=== PATIENT | male | born 1965 | race Hispanic/Latino ===

== ENCOUNTER 2025-03-16 18:23 | Emergency (ER) | payer SELFPAY ==
[2025-03-16] VITALS (9 sets, daily range): BP systolic 157–170; BP diastolic 76–81; PULSE 66–85; RESP 14–16; O2SAT 94–99; BMI 23.7
--- NOTE | 2025-03-16 18:28 | DI.RAD.S_ITS ---
PROCEDURE: XR ANKLE LT MIN 3V INDICATIONS: open fx TECHNIQUE: 2 views of the ankle were acquired. COMPARISON: [facility], CR, XR KNEE LT 3V, 03/16/2025, 18:24. FINDINGS: Bones: Significantly comminuted displaced distal tibia and fibular diaphyseal fractures. Fracture lucencies extend through the metaphysis on the tibia and into the tibiotalar joint space. Fractures present along the superior aspect of the medial malleolus. There is approximately 1.2 cm overlap of proximal distal fragments the fibula and 6.4 cm the tibia. Tibiotalar joint space is relatively well maintained without gross dislocation. Soft tissues: Prominent ankle effusion. Achilles tendon appears normal. IMPRESSION: Extensive distal tibia and fibular fractures with intra-articular extension as described above. Given appearance disruption of the syndesmosis is suspected. Dictated by: Montserrat Mitchell M.D. on 03/16/2025 at 19:49 Approved by: Montserrat Mitchell M.D. on 03/16/2025 at 19:51
--- NOTE | 2025-03-16 18:28 | DI.RAD.S_ITS ---
PROCEDURE: XR KNEE LT 3V INDICATIONS: open tib fib fx TECHNIQUE: 2 views of the knee were acquired. COMPARISON: [facility], CR, XR ANKLE LT MIN 3V, 03/16/2025, 18:24. FINDINGS: Bones: No fractures or dislocations. No suspicious bony lesions. Soft tissues: No joint effusion. No suspicious soft tissue calcifications. IMPRESSION: No visualized acute fracture or dislocation. However, if clinical concern and/or pain persist, short interval imaging followup in 7-10 days is recommended, as occult injury cannot be definitively excluded. Dictated by: Montserrat Mitchell M.D. on 03/16/2025 at 19:49 Approved by: Montserrat Mitchell M.D. on 03/16/2025 at 19:49
--- NOTE | 2025-03-16 18:33 | ED.LOWEXIN ---
HPI - Extremity Injury (Lower) General Chief Complaint: Extremity Injury, Lower Stated Complaint: Fall,open tib/fib fracture Time Seen by Provider: 03/16/25 18:28 History of Present Illness HPI Narrative: Patient is a 59-year-old male without any significant past medical history comes into the ED from home for evaluation of left open leg fracture, according to patient an hour ago he fell off of a ladder a proximally 4-5 feet high, he states that his foot got stuck and hung upside down for several minutes, he states that he did end up falling to the floor. Patient was brought in by medics, at time of evaluation patient in a splint to the left lower extremity, he denies any blood thinners denies any other injuries traumas at this time. Related Data Previous Rx's ?Medication ?Instructions ?Recorded ciprofloxacin HCl 500 mg tablet 500 mg PO BID 7 days #0 tabs 05/27/16 (Cipro) Allergies Allergy/AdvReac Type Severity Reaction Status Date / Time No Known Drug Allergies Allergy Verified 03/16/25 18:32 Review of Systems Review of Systems Narrative: General: Denies fever, chills, weight loss HEENT: Denies headache, eye drainage, eye irritation, head trauma, sore throat, voice change Cardiovascular: Denies any chest pain, palpitations, tachycardia Respiratory: Denies any shortness of breath, cough, wheeze, stridor GI/: Denies any abdominal pain, nausea, vomiting, diarrhea, bright red blood per rectum, melanotic stools, urinary frequency, urinary retention, dysuria, hematuria MSK: Positive left lower extremity fracture Skin: Denies any rashes, lesions, discoloration Neuro: Denies any headache, lightheadedness, dizziness, fainting, weakness Psych: Denies SI/HI Patient History Social History Smoking Status: Current every day smoker Exam Narrative Exam Narrative: General: Cooperative, well-developed, not in acute distress HEENT: Normocephalic, atraumatic, PERRLA, normal sclera, eyelids normal Neck: Active full range of motion, atraumatic Chest: Normal to inspection, negative crepitus, no overlying erythema ecchymosis Respiratory: Normal respiratory effort, not in acute respiratory distress, clear to auscultation bilaterally negative cough, wheeze, tachypnea, rhonchi, rales Cardiology: Regular rate rhythm negative gallop, murmur, rubs GI/: No tenderness to palpation, soft, non rigid, normal to inspection, exam deferred MSK: Patient with open fracture noted to the left lower extremity, neurovascularly intact, there is a 2 cm laceration to the lower left extremity Skin: No rashes or lesions noted Neuro: Alert awake oriented x3, moves all 4 extremities spontaneously, cranial nerves intact, able to answer all questions appropriately follows commands appropriately Psych: Cooperative, negative suicidal or homicidal ideations Initial Vital Signs Initial Vital Signs: Vital Signs Pulse Rate 77 03/16/25 18:32 Respiratory Rate 16 03/16/25 18:32 Blood Pressure 169/81 H 03/16/25 18:32 Pulse Oximetry 99 03/16/25 18:32 Oxygen Delivery Method Room Air 03/16/25 18:32 Course Orders Ordered: ED Orders 03/16/25 18:28 XR ankle LT 2V Stat XR knee LT 1to2V Stat 03/16/25 18:51 CBC Auto Diff [Complete Blood Count AUTO DIFF] Stat CMP [Comprehensive Metabolic Panel] Stat PT [Prothrombin Time INR] Stat PTT Partial Thromboplastin Yuri Stat 03/16/25 19:36 Type and Screen Stat Hydromorphone HCl (Hydromorphone Hcl 0.5 Mg/0.5 Ml Syringe) 0.5 mg IV NOW ONE Stop: 03/16/25 20:20 Discontinued Medications Diphtheria/Tetanus/Acell Pertussis (Tet,Diph,Pertuss(Acell),Vac/Pf 0.5 Ml Syringe) 0.5 ml IM .ONCE ONE Stop: 03/16/25 18:51 Fentanyl (Fentanyl 100 Mcg/2 Ml Inj) 100 mcg IM NOW ONE Stop: 03/16/25 18:29 Last Admin: 03/16/25 18:54 Dose: Not Given Documented By: LM Fentanyl (Fentanyl 100 Mcg/2 Ml Inj) 100 mcg IV NOW ONE Stop: 03/16/25 18:45 Last Admin: 03/16/25 18:45 Dose: 100 mcg Documented By: LM Cefazolin Sodium/Dextrose (Ancef) 100 mls @ 200 mls/hr IV NOW ONE Stop: 03/16/25 19:14 Last Infusion: 03/16/25 19:35 Dose: Infused Documented By: Admin: 03/16/25 18:56 Dose: 200 mls/hr Documented By: LM Vital Signs Vital signs: Vital Signs - 8 hr 03/16/25 18:32 Pulse Rate 77 Respiratory Rate 16 Blood Pressure 169/81 H Pulse Oximetry 99 Oxygen Delivery Method Room Air MDM - Extremity Injury (Lower) Differential Diagnosis Differential diagnosis: Likely ankle sprain and strain and other (Open fracture, laceration,) Lab Data 03/16/25 18:51 03/16/25 18:51 Labs: Lab Results 03/16/25 03/16/25 Range/Units 18:51 19:36 WBC 10.8 (4.5-11.0) X10^3/uL RBC 4.02 L (4.5-5.9) X10^6/uL Hgb 14.1 (13.5-17.5) g/dL Hct 39.6 L (41-53) % MCV 98.5 (80-100) fL MCH 35.0 H (26-34) PG MCHC 35.6 (30-36) % RDW 12.5 (11.6-14.8) % Plt Count 219 (150-400) X10^3/uL Neut % (Auto) 79.4 H (50-75) % Lymph % (Auto) 13.0 L (25-40) % Irwin % (Auto) 5.6 (3-14) % Eos % (Auto) 1.6 L (2-4) % Baso % (Auto) 0.4 (0-2) % Neut # (Auto) 8600 H (6106-7934) /uL Lymph # (Auto) 1400 (1560-5673) /uL Irwin # (Auto) 600 (0-900) /uL Eos # (Auto) 200 (0-450) /uL Baso # (Auto) 0 (0-100) /uL PT 11.5 (9.4-12.5) SECONDS INR 1.0 (0.9-1.3) APTT 25 L (25.1-36.5) SECONDS Sodium 137 (137-145) mmol/L Potassium 4.3 (3.4-5.1) mmol/L Chloride 107 (98-107) mmol/L Carbon Dioxide 23 (22-32) mmol/L BUN 22 H (9-20) mg/dL Creatinine 0.93 (0.66-1.25) mg/dL Estimated GFR > 60 (>60) mL/min BUN/Creatinine Ratio 23.7 H (6-22) Glucose 106 H (70-99) mg/dL Calcium 9.0 (8.4-10.2) mg/dL Total Bilirubin 0.8 (0.2-1.3) mg/dL AST 41 (17-59) IU/L ALT 33 (<50) IU/L Alkaline Phosphatase 65 (38-126) U/L Total Protein 7.3 (6.3-8.2) g/dL Albumin 4.5 (3.5-5.0) g/dL Globulin 2.8 (1.7-4.1) g/dL Albumin/Globulin Ratio 1.6 (1.0-2.8) Blood Type A Positive Antibody Screen Negative Imaging Data Extremity x-ray #1: Radiologist's Impression: [address] [address] XRay Report Signed Patient: Antoine Salmon V MR#: [id number] : 1965 Acct:[id number] Age/Sex: 59 / M Date of Service: 03/16/25 Loc: ED Accession Number: [id number] Procedure: XR knee LT 1to2V Ordering Provider: Victor M Slater D.O. PROCEDURE: XR KNEE LT 3V INDICATIONS: open tib fib fx TECHNIQUE: 2 views of the knee were acquired. COMPARISON: [facility], , XR ANKLE LT MIN 3V, 03/16/2025, 18:24. FINDINGS: Bones: No fractures or dislocations. No suspicious bony lesions. Soft tissues: No joint effusion. No suspicious soft tissue calcifications. IMPRESSION: No visualized acute fracture or dislocation. However, if clinical concern and/or pain persist, short interval imaging followup in 7-10 days is recommended, as occult injury cannot be definitively excluded. Extremity x-ray #2: Radiologist's Impression: [address] [address] XRay Report Signed Patient: Antoine Salmon V MR#: [id number] : 1965 Acct:[id number] Age/Sex: 59 / M Date of Service: 03/16/25 Loc: ED Accession Number: [id number] Procedure: XR ankle LT 2V Ordering Provider: Victor M Slater D.O. PROCEDURE: XR ANKLE LT MIN 3V INDICATIONS: open fx TECHNIQUE: 2 views of the ankle were acquired. COMPARISON: [facility], CR, XR KNEE LT 3V, 03/16/2025, 18:24. FINDINGS: Bones: Significantly comminuted displaced distal tibia and fibular diaphyseal fractures. Fracture lucencies extend through the metaphysis on the tibia and into the tibiotalar joint space. Fractures present along the superior aspect of the medial malleolus. There is approximately 1.2 cm overlap of proximal distal fragments the fibula and 6.4 cm the tibia. Tibiotalar joint space is relatively well maintained without gross dislocation. Soft tissues: Prominent ankle effusion. Achilles tendon appears normal. IMPRESSION: Extensive distal tibia and fibular fractures with intra-articular extension as described above. Given appearance disruption of the syndesmosis is suspected. MDM Narrative Medical decision making narrative: Patient is a 59-year-old male without any significant past medical history presenting from home for evaluation of open fracture, patient states that 1 hour prior to arrival he fell off of a 5 ft ladder hung by his left leg and fell down. He denies any other injuries at this time, not on any blood thinners, on exam patient with a gross deformity to the left lower extremity with laceration to the anterior aspect of the left lower extremity, bleeding controlled, neurovascularly intact otherwise patient able to move ankle and toes, good palpable dorsalis pedis and posterior tibialis. Did place patient in splint thoroughly irrigated the wound and placed a compressive dressing to control bleeding. Did give patient 100 mcg fentanyl initially, fluids and 2 g Ancef. Patient did state last p.o. was at 10:00 a.m. ate some eggs. 1924: Discussed case with orthopedic surgeon Dr. Hays, reviewed the x-rays and states that it is a pilon fracture and that this patient will need to go to higher level of care is suggesting [facility], call placed out for this. Does agree to place patient in splint prior to transfer, we will place patient in splint here, did inform patient of need for transfer understands and agrees with this plan. 1943: Discussed case with emergency medicine doctor Dr. Matthews, accepts the admission at ED [place] [facility], slight patient there no further recommendations 2030: Transport at bedside, patient re-evaluated, safe for transport to outside hospital Critical Care Time Critical Care Time Critical Care Time: Yes Total Critical Care Time: 35 Attestation: Authorized and Performed by: Victor M Slater DO Total critical care time: Approximately [35] minutes Due to a high probability of clinically significant, life threatening deterioration, the patient required my highest level of preparedness to intervene emergently and I personally spent this critical care time directly and personally managing the patient. This critical care time included obtaining a history; examining the patient; pulse oximetry; ordering and review of studies; arranging urgent treatment with development of a management plan; evaluation of patient's response to treatment; frequent reassessment; and, discussions with other providers. This critical care time was performed to assess and manage the high probability of imminent, life-threatening deterioration that could result in multi-organ failure. It was exclusive of separately billable procedures and treating other patients and teaching time. Please see MDM section and the rest of the note for further information on patient assessment and treatment. Discharge Plan Departure Patient Disposition: [facility] Clinical Impression: Pilon fracture Qualifiers: Encounter type: initial encounter Fracture type: open Open fracture type: open type I or II Fracture alignment: displaced Laterality: left Qualified Code(s): S82.872B - Displaced pilon fracture of left tibia, initial encounter for open fracture type I or II Prescriptions: No Action ciprofloxacin HCl [Cipro] 500 MG tablet 500 mg PO BID 7 Days Qty: 0 0RF
[2025-03-16] MEDS: fentaNYL 100 MCG/2 ML INJ IV (18:45)
[2025-03-16] MEDS: CEFAZOLIN 2 GM/100 ML PREMIX 100 ML IV (18:56)
[2025-03-16 18:59] LABS: Add Manual Diff / Slide Review NO; Hematocrit 39.6 % (41-53); Hemoglobin 14.1 g/dL (13.5-17.5); Lymphocytes Absolute Auto 1400 /uL (1100-4500); Mean Corpuscular HGB Conc 35.6 % (30-36); Mean Corpuscular Hemoglobin 35.0 PG (26-34); Mean Corpuscular Volume 98.5 fL (80-100); Platelet Count 219 X10^3/uL (150-400)
[2025-03-16 19:06] LABS: INR 1.0 (0.9-1.3); Prothrombin Time 11.5 SECONDS (9.4-12.5)
[2025-03-16 19:09] LABS: PTT Partial Thromboplastin Tim 25 SECONDS (25.1-36.5)
[2025-03-16 19:14] LABS: Alanine Aminotransferase 33 IU/L (<50); Albumin 4.5 g/dL (3.5-5.0); Albumin Globulin Ratio 1.6 (1.0-2.8); Alkaline Phosphatase 65 U/L (38-126); Blood Urea Nitrogen 22 mg/dL (9-20); Calcium 9.0 mg/dL (8.4-10.2); Carbon Dioxide 23 mmol/L (22-32); Chloride 107 mmol/L (98-107); Estimated Glomerular Filt Rate > 60 mL/min (>60); Globulin 2.8 g/dL (1.7-4.1); Glucose 106 mg/dL (70-99); Potassium 4.3 mmol/L (3.4-5.1); Sodium 137 mmol/L (137-145); Total Protein 7.3 g/dL (6.3-8.2)
[2025-03-16 19:19] LABS: HEMOLYSIS 88 (0-50)
--- NOTE | 2025-03-16 19:24 | PC.NURSE ---
Wound to left lower leg washed out with 1L NS, non-adherent placed with 4x4 gauze placed on top, wrapped with stretch gauze, ASYA wrap placed for compression per providers instruction. Pt tolerated well. Pt able to move toes and has good sensation after.
--- NOTE | 2025-03-16 19:59 | PC.NURSE ---
While talking with pt, pt stopped talking mid sentence and stated I lost feeling in my foot. My big toe, it's like it's sleeping. My toe is asleep. Pulse in left foot faint to top of foot, on palpation pt stated Yeah, there. My toe is asleep. It's different. This RN exited room and immediately informed provider of change of sensation and pulse to foot.
[2025-03-16] MEDS: TET,DIPH,PERTUSS(ACELL),VAC/PF 0.5 ML SYRINGE IM (20:26)
--- NOTE | 2025-03-16 20:26 | PC.NURSE ---
Pt's leg splinted with Dr. Slater. Pt c/o lost of sensation to 1st toe and 2nd toe now decreased sensation. Provider aware. Pt's leg placed in position of comfort for pt currently.
== END 2025-03-16 20:45 | disposition short-term general hospital (02) ==
PROVIDERS: Emergency Provider Student in an Organized Health Care Education/Training Program
DX: S82.872B Displaced pilon fracture of left tibia, initial encounter for open fracture type I or II (principal); W11.XXXA Fall on and from ladder, initial encounter; Z23 Encounter for immunization
CPT/HCPCS: 36415; 73560; 73600; 80053; 85025; 85610; 85730; 86850; 86900; 86901; 90471; 96365; 96375; 99284; 99291; 90715; J0690; J1171; J3010